=== PATIENT | male | born 1990 | race African-American/Black ===

== ENCOUNTER → 2020-07-28 | Emergency (ER) | payer OTHER ==
[2020-07-28 18:50] VITALS: BP 144/91; PULSE 92; TEMP 98.7; BMI 42.5
== END | disposition home or self-care (01) ==
LOC: JERFT 18:44
DX: Z48.00 Encounter for change or removal of nonsurgical wound dressing (principal)
CPT/HCPCS: 99281-25

== ENCOUNTER 2023-04-23 10:23 | Emergency (ER) | payer OTHER ==
[2023-04-23 10:27] VITALS: RESP 18; TEMP 98.1; BMI 43.7
[2023-04-23] MEDS ORDERED: ACETAMINOPHEN 325 MG TABLET (FP) PO ONE (11:32)
[2023-04-23] MEDS ORDERED: ACETAMINOPHEN 325 MG TABLET (FP) ONE (11:34)
[2023-04-23] MEDS ORDERED: METOCLOPRAMIDE HCL INJECTION 10 MG/2 ML VIAL IVPB ONE (12:46)
[2023-04-23] MEDS ORDERED: METOCLOPRAMIDE HCL INJECTION 10 MG/2 ML VIAL ONE (12:53)
[2023-04-23 13:05] LABS: BASO % 0.8 % (0-2.0); EOS % 1.4 % (0-4.5); HEMATOCRIT 44.6 % (35.4-49); LYMPH % 17.4 % (8-40); MCH 30.7 pg (25.7-33.7); MCHC 35.8 g/dl (32.0-35.9); MEAN CELL VOLUME 85.6 fl (80-96); MEAN PLT VOLUME 8.4 fl (7.5-11.1); MONO % 4.3 % (3.8-10.2); NEUT % 76.1 % (42.8-82.8); PLATELET COUNT 224 10^3/uL (134-434); RBC 5.21 M/mm3 (4.00-5.60); RDW 12.9 % (11.9-15.9); WHITE BLOOD COUNT 5.7 K/mm3 (4.0-10.0)
[2023-04-23 13:34] LABS: POTASSIUM 4.4 mmol/L (3.5-5.1)
[2023-04-23 13:37] LABS: ALBUMIN 4.2 g/dl (3.4-5.0)
[2023-04-23 13:39] LABS: CREATININE 0.9 mg/dL (0.55-1.3)
[2023-04-23 13:42] LABS: BILIRUBIN,TOTAL 0.5 mg/dL (0.2-1); TOT PROT 7.3 g/dl (6.4-8.2)
[2023-04-23 15:00] VITALS: BP 132/72; PULSE 85
[2023-04-23] MEDS ORDERED: SODIUM CHLORIDE 0.9% 500 ML INFUS.BAG IV ONE (15:31)
== END 2023-04-23 16:17 | disposition home or self-care (01) ==
LOC: JER 10:23
PROC: 3E033GC Introduction of Other Therapeutic Substance into Peripheral Vein, Percutaneous Approach (ICD-10-PCS; principal; 2023-04-23)
DX: R51.9 Headache, unspecified (principal); R42 Dizziness and giddiness; H53.149 Visual discomfort, unspecified; R73.9 Hyperglycemia, unspecified; I10 Essential (primary) hypertension; Z20.822 Contact with and (suspected) exposure to COVID-19
CPT/HCPCS: 0241U-QW; 36415; 70450-TC; 80053; 84484; 85025; 93005; 93010; 96374; 99285-25